=== PATIENT | female | born 1960 | race Caucasian/White ===

== ENCOUNTER 2019-12-18 09:11 | Emergency (ER) | payer MEDICAID ==
[2019-12-18] MEDS ORDERED: TRAMADOL HCL 50 MG TABLET PO ONE ×2 (10:46→14:39)
--- NOTE | 2019-12-18 10:50 | ER Document Report ---
ED Medical Screen (RME) - General Chief Complaint: Fall Injury Stated Complaint: FALL/RIGHT HIP,ELBOW,FINGER PAIN Time Seen by Provider: 12/18/19 10:42 Primary Care Provider: ALCON PEREZ NP [Primary Care Provider] - Follow up as needed Notes: HPI: 59-year-old female presenting to the emergency department with multiple injuries from a mechanical fall. Patient tripped over her dog landing on her right side. States she injured her right shoulder right elbow right hip right knee. Did not hit her head or lose consciousness. Also complaining of left hand and middle finger pain. States she was able to weight-bear initially after the accident I have greeted and performed a rapid initial assessment of this patient. A comprehensive ED assessment and evaluation of the patient, analysis of test results and completion of the medical decision making process will be conducted by additional ED providers PHYSICAL EXAMINATION: GENERAL: Well-appearing, well-nourished and in no acute distress. HEAD: Atraumatic, normocephalic. EYES: sclera anicteric, conjunctiva are normal. ENT: Moist mucous membranes. NECK: Normal range of motion LUNGS: Normal work of breathing, clear to auscultation HEART: 2+ radial pulses bilaterally, regular rate and rhythm ABD: limited by positioning for exam in triage. EXTREMITIES: no pitting or edema. No cyanosis. Somewhat limited exam as patient is in wheelchair. There is mild tenderness to around the right shoulder girdle and right elbow on palpation but patient is able to fully extend the right arm at the elbow. There is no visible bruising or swelling to the upper or lower extremities. Mild tenderness on palpation around the right hip and right knee. Patient is able to fully extend the right leg at the hip and knee. There is swelling of the proximal left third finger with tenderness on palpation NEUROLOGICAL: No focal neurological deficits. Moves all extremities spontaneously and on command. PSYCH: Normal mood, normal affect. SKIN: Warm, Dry, normal turgor, no rashes or lesions noted. TRAVEL OUTSIDE OF THE [place] IN LAST 30 DAYS: No - Related Data Allergies/Adverse Reactions: amoxicillin Allergy (Verified 12/18/19 10:41) ampicillin Allergy (Verified 12/18/19 10:41) benazepril [From Lotensin] Allergy (Verified 12/18/19 10:41) codeine Allergy (Verified 12/18/19 10:41) doxycycline Allergy (Verified 12/18/19 10:41) hydromorphone [From Dilaudid] Allergy (Verified 12/18/19 10:41) ibuprofen Allergy (Verified 12/18/19 10:41) morphine Allergy (Verified 12/18/19 10:41) Penicillins Allergy (Verified 12/18/19 10:41) prednisone Allergy (Verified 12/18/19 10:41) Sulfa (Sulfonamide Antibiotics) Allergy (Verified 12/18/19 10:41) Physical Exam - Vital signs Vitals: Temp Pulse Resp BP Pulse Ox 97.9 F 78 20 145/77 H 95 12/18/19 09:23 12/18/19 09:23 12/18/19 09:23 12/18/19 09:23 12/18/19 09:23 Course - Vital Signs Vital signs: Temp Pulse Resp BP Pulse Ox 97.9 F 78 20 145/77 H 95 12/18/19 09:23 12/18/19 09:23 12/18/19 09:23 12/18/19 09:23 12/18/19 09:23 Doctor's Discharge - Discharge Referrals: ALCON PEREZ, [employer] SUPER[employer] [Primary Care Provider] - Follow up as needed
--- NOTE | 2019-12-18 11:53 | RADIOLOGY REPORT (SQ) ---
EXAM DESCRIPTION: ELBOW RIGHT OVER 2 VIEWS COMPLETED DATE/TIME: 12/18/2019 11:35 am REASON FOR STUDY: fall COMPARISON: None. NUMBER OF VIEWS: Four views. TECHNIQUE: AP, lateral, and both oblique radiographic images acquired of the right elbow. LIMITATIONS: None. FINDINGS: MINERALIZATION: Normal. BONES: No acute fracture or dislocation. No worrisome bone lesions. JOINT: No effusion. SOFT TISSUES: No soft tissue swelling. No foreign body. OTHER: No other significant finding. IMPRESSION: NEGATIVE STUDY OF THE RIGHT ELBOW. NO RADIOGRAPHIC EVIDENCE OF ACUTE INJURY. TECHNICAL DOCUMENTATION: JOB ID: [id number] 2010 [employer]- All Rights Reserved Reading location - IP/workstation name: [email or web address]
--- NOTE | 2019-12-18 11:57 | RADIOLOGY REPORT (SQ) ---
EXAM DESCRIPTION: SHOULDER RIGHT 2 OR MORE VIEWS COMPLETED DATE/TIME: 12/18/2019 11:35 am REASON FOR STUDY: fall COMPARISON: None. NUMBER OF VIEWS: Three views. TECHNIQUE: Internal rotation, external rotation, and Y view images acquired of the right shoulder. LIMITATIONS: None. FINDINGS: MINERALIZATION: Normal. BONES: No acute fracture. No worrisome bone lesions. JOINTS: No dislocation. VISUALIZED LUNGS AND RIBS: No pneumothorax. No rib fracture. SOFT TISSUES: There is calcification at the insertion site of the supraspinatus tendon consistent wit h calcific tendinitis. OTHER: No other significant finding. IMPRESSION: Degenerative changes. No acute findings. Calcific tendinitis. TECHNICAL DOCUMENTATION: JOB ID: [id number] 2010 [employer]- All Rights Reserved Reading location - IP/workstation name: [email or web address]
--- NOTE | 2019-12-18 11:58 | RADIOLOGY REPORT (SQ) ---
EXAM DESCRIPTION: HIP RIGHT AP/LATERAL COMPLETED DATE/TIME: 12/18/2019 11:35 am REASON FOR STUDY: fall COMPARISON: None. NUMBER OF VIEWS: Two views. TECHNIQUE: AP and frog-leg view of the right hip. LIMITATIONS: None. FINDINGS: MINERALIZATION: Normal. RIGHT HIP: Joint space narrowing. No acute fracture or dislocation. OPPOSITE HIP: No fracture or dislocation. No worrisome bone lesions. SOFT TISSUES: No findings. OTHER: No other significant finding. IMPRESSION: Degenerative changes. No acute fracture or dislocation. COMMENT: Pelvic fractures are often occult on plain radiographs. If strong clinical suspicion for f racture, recommend CT or MR. TECHNICAL DOCUMENTATION: JOB ID: [id number] 2010 [employer]- All Rights Reserved Reading location - IP/workstation name: [email or web address]
--- NOTE | 2019-12-18 11:59 | RADIOLOGY REPORT (SQ) ---
EXAM DESCRIPTION: KNEE RIGHT 4 VIEWS COMPLETED DATE/TIME: 12/18/2019 11:35 am REASON FOR STUDY: fall COMPARISON: None. NUMBER OF VIEWS: Four views. TECHNIQUE: AP, lateral, and both oblique radiographic images acquired of the right knee. LIMITATIONS: None. FINDINGS: MINERALIZATION: Normal. BONES: No acute fracture or dislocation. No worrisome bone lesions. JOINT: No effusion. SOFT TISSUES: No soft tissue swelling. No radio-opaque foreign body. OTHER: No other significant finding. IMPRESSION: NEGATIVE STUDY OF THE RIGHT KNEE. NO RADIOGRAPHIC EVIDENCE OF ACUTE INJURY. TECHNICAL DOCUMENTATION: JOB ID: [id number] 2010 [employer]- All Rights Reserved Reading location - IP/workstation name: [email or web address]
--- NOTE | 2019-12-18 12:00 | RADIOLOGY REPORT (SQ) ---
EXAM DESCRIPTION: L SPINE WHOLE COMPLETED DATE/TIME: 12/18/2019 11:35 am REASON FOR STUDY: fall COMPARISON: None. NUMBER OF VIEWS: Five views including obliques. TECHNIQUE: AP, lateral, oblique, and sacral radiographic images acquired of the lumbar spine. LIMITATIONS: None. FINDINGS: MINERALIZATION: Normal. SEGMENTATION: Normal. No transitional anatomy. ALIGNMENT: Normal. VERTEBRAE: Maintained height. No fracture or worrisome bone lesion. DISCS: Multilevel disc space narrowing with osteophytes. POSTERIOR ELEMENTS: Pedicles and facets are intact. No pars defect or posterior arch defects. Facet arthropathy is present. HARDWARE: None in the spine. PARASPINAL SOFT TISSUES: Normal. PELVIS: Intact as visualized. No fractures or worrisome bone lesions. SI joints intact. OTHER: No other significant finding. IMPRESSION: SPONDYLOSIS WITHOUT BONE LESION OR FRACTURE. TECHNICAL DOCUMENTATION: JOB ID: [id number] 2010 [employer]- All Rights Reserved Reading location - IP/workstation name: [email or web address]
--- NOTE | 2019-12-18 12:00 | RADIOLOGY REPORT (SQ) ---
EXAM DESCRIPTION: HAND LEFT 3 VIEWS COMPLETED DATE/TIME: 12/18/2019 11:44 am REASON FOR STUDY: fall COMPARISON: None. EXAM PARAMETERS: NUMBER OF VIEWS: Three views. TECHNIQUE: AP, lateral and oblique radiographic images acquired of the left hand. LIMITATIONS: None. FINDINGS: MINERALIZATION: Normal. BONES: No acute fracture or dislocation. No worrisome bone lesions. JOINTS: Joint space narrowing in the proximal and distal interphalangeal joints consistent osteoarthr itis. Degenerative changes in the 1st and 2nd carpal/metacarpal joint. SOFT TISSUES: No soft tissue swelling. No foreign body. OTHER: No other significant finding. IMPRESSION: Degenerative changes. No acute fracture or dislocation. TECHNICAL DOCUMENTATION: JOB ID: [id number] 2010 [email or web address]- All Rights Reserved Reading location - IP/workstation name: [email or web address]
[2019-12-18] MEDS ORDERED: METHOCARBAMOL 500 MG TABLET PO ONE (14:41)
--- NOTE | 2019-12-18 14:45 | ER Document Report ---
ED General - General Chief Complaint: Fall Stated Complaint: FALL/RIGHT HIP,ELBOW,FINGER PAIN Time Seen by Provider: 12/18/19 10:42 Primary Care Provider: ALCON PEREZ NP [Primary Care Provider] - Follow up in 3-5 days TRAVEL OUTSIDE OF THE [place] IN LAST 30 DAYS: No - HPI Notes: 59-year-old female to the emergency department with complaints of multiple injuries after tripping over her daughter's dog today prior to arrival. She states that her daughter has a bassinet and beagle mix and the dog got under her feet and she fell over. She states that her right hip left hand particularly her left middle finger, low back, neck, shoulder hurts. She denies any loss of consciousness or hitting her head. She states what hurts the most is her right hip and her left middle finger. She states the left middle finger is swollen and starting to bruise. She denies any other injuries. She denies being on any blood thinners. - Related Data Allergies/Adverse Reactions: amoxicillin Allergy (Verified 12/18/19 10:41) ampicillin Allergy (Verified 12/18/19 10:41) benazepril [From Lotensin] Allergy (Verified 12/18/19 10:41) codeine Allergy (Verified 12/18/19 10:41) doxycycline Allergy (Verified 12/18/19 10:41) hydromorphone [From Dilaudid] Allergy (Verified 12/18/19 10:41) ibuprofen Allergy (Verified 12/18/19 10:41) morphine Allergy (Verified 12/18/19 10:41) Penicillins Allergy (Verified 12/18/19 10:41) prednisone Allergy (Verified 12/18/19 10:41) Sulfa (Sulfonamide Antibiotics) Allergy (Verified 12/18/19 10:41) Home Medications: Lisinopril. Amlodipine. Carvedilol. Pravastatin. Montelukast. Metformin. Methocarbamol. Gabapentin. Tramadol. Lidocaine Patch. Nitroglycerin PRN. Epinephrine. Proventil. Jardiance Past Medical History - General Information source: Patient - Social History Smoking Status: Never Smoker Frequency of alcohol use: None Drug Abuse: None Family History: Reviewed & Not Pertinent Patient has suicidal ideation: No Patient has homicidal ideation: No - Past Medical History Cardiac Medical History: Reports: Hx Hypertension Endocrine Medical History: Reports: Hx Diabetes Mellitus Type 2 Past Surgical History: Reports: Hx Cholecystectomy, Hx Hysterectomy, Hx Neurologic Surgery - remove disc in spine Review of Systems - Review of Systems Constitutional: denies: Chills, Fever EENT: No symptoms reported Cardiovascular: denies: Chest pain, Palpitations, Heart racing, Orthopnea, Dyspnea, Syncope, Dizziness, Lightheaded Respiratory: denies: Cough, Short of breath Gastrointestinal: denies: Abdominal pain, Diarrhea, Nausea, Vomiting Musculoskeletal: See HPI, Back pain, Joint pain, Neck pain Skin: No symptoms reported Hematologic/Lymphatic: No symptoms reported Neurological/Psychological: No symptoms reported -: Yes All other systems reviewed and negative Physical Exam - Vital signs Vitals: Temp Pulse Resp BP Pulse Ox 97.9 F 78 20 145/77 H 95 12/18/19 09:23 12/18/19 09:23 12/18/19 09:23 12/18/19 09:23 12/18/19 09:23 Interpretation: Normal - General General appearance: Appears well, Alert In distress: None - HEENT Head: Normocephalic, Atraumatic Eyes: Normal Pupils: PERRL - Respiratory Respiratory status: No respiratory distress Chest status: Nontender Breath sounds: Normal. No: Rales, Rhonchi, Wheezing Chest palpation: Normal - Cardiovascular Rhythm: Regular Heart sounds: Normal auscultation Murmur: No - Abdominal Inspection: Normal Distension: No distension Bowel sounds: Normal Tenderness: Nontender. No: Tender, McBurney's point, Ramos's sign, Guarding, Rebound Organomegaly: No organomegaly - Back Back: Normal, Tender, Vertebra tenderness Notes: there is TTP over the midline cervical and lumbar spine. No step off or deformity. no straight leg raise. Patient can ambulate slowly with a limp to the right hip. - Extremities Notes: the left middle finger is edematous and ecchymotic. There is no evidence for dislocation. Patient has pain and only 4/5 strength against resistance likely secondary to pain. 5/5 strength against resistance with flexion and extension. the left middle finger is not deformed or stuck in flexion to suggest tendon injury. Cap refill is less than 2 sec. Radial pulses intact and equal. + TTP over the right hip joint with no leg/length discrepancy, no rotation of the leg. pt is able to ambulate but with pain. - Neurological Neuro grossly intact: Yes Cognition: Normal Orientation: AAOx4 [place] Coma Scale Eye Opening: Spontaneous Christopher Coma Scale Verbal: Oriented Christopher Coma Scale Motor: Obeys Commands [place] Coma Scale Total: 15 Speech: Normal Cranial nerves: Normal Cerebellar coordination: Normal Motor strength normal: LUE, RUE, LLE, RLE Additional motor exam normals: Equal tapper shank Sensory: Normal - Psychological Associated symptoms: Normal affect, Normal mood - Skin Skin Temperature: Warm Skin Moisture: Dry Skin Color: Normal Course - Re-evaluation Re-evalutation: 12/18/19 Impression: Left middle finger sprain, right hip strain, neck strain, low back strain, fall. XRs are all negative for fracture. Will discharge with small amount of tramadol. Encouraged RICE. patient agrees with the plan. - Vital Signs Vital signs: Temp Pulse Resp BP Pulse Ox 97.7 F 68 16 114/65 97 12/18/19 14:51 12/18/19 14:51 12/18/19 14:51 12/18/19 14:51 12/18/19 14:51 - Diagnostic Test Radiology reviewed: Image reviewed, Reports reviewed Discharge - Discharge Clinical Impression: Right hip pain Fall Qualifiers: Encounter type: initial encounter Qualified Code(s): W19.XXXA - Unspecified fall, initial encounter Sprain of left middle finger Qualifiers: Encounter type: initial encounter Sprain of finger site: metacarpophalangeal joint Qualified Code(s): S63.653A - Sprain of metacarpophalangeal joint of left middle finger, initial encounter Neck strain Qualifiers: Encounter type: initial encounter Qualified Code(s): S16.1XXA - Strain of muscle, fascia and tendon at neck level, initial encounter Back strain Qualifiers: Encounter type: initial encounter Qualified Code(s): S39.012A - Strain of muscle, fascia and tendon of lower back, initial encounter Condition: Stable Disposition: HOME, SELF-CARE Instructions: Muscle Strain ([facility]), Neck Injury (Cervical Strain) ([facility]), Sprained Finger ([facility]) Additional Instructions: Take medicines as prescribed. He may take the tramadol with your methocarbamol. Apply ice to the hand 3 times a day for 20 minutes at a time. Apply heat to your back and neck. Follow-up with your primary care physician. Return if any worsening symptoms. Prescriptions: Tramadol HCl [Ultram 50 mg Tablet] 50 mg PO Q8H PRN #9 tab PRN Reason: Referrals: ALCON PEREZ, IMAGING TECHNICIAN [Primary Care Provider] - Follow up in 3-5 days
[2019-12-18 14:54] VITALS: BP 114/65
== END 2019-12-18 15:15 | disposition home or self-care (01) ==
LOC: ER 09:11
DX: S63.653A Sprain of metacarpophalangeal joint of left middle finger, initial encounter (principal); S16.1XXA Strain of muscle, fascia and tendon at neck level, initial encounter; S39.012A Strain of muscle, fascia and tendon of lower back, initial encounter; M25.551 Pain in right hip; M79.642 Pain in left hand; M79.645 Pain in left finger(s); M54.2 Cervicalgia; M25.512 Pain in left shoulder; W01.0XXA Fall on same level from slipping, tripping and stumbling without subsequent striking against object, initial encounter; Z88.1 Allergy status to other antibiotic agents; Z88.8 Allergy status to other drugs, medicaments and biological substances; I10 Essential (primary) hypertension; E11.9 Type 2 diabetes mellitus without complications
CPT/HCPCS: 99283; 73080; 73130; 73502; 73564; 72110; 73030; J3490